=== PATIENT | female | born 1990 | race Caucasian/White ===

== ENCOUNTER 2022-03-16 14:11 | Emergency (ER) | payer OTHER ==
[~2022-03-16 14:11] MED LIST: FLEXERIL10 MG PO; MEDROL 4MG DOSEP4 MG PO
== END 2022-03-16 19:05 | disposition home or self-care (01) ==
LOC: FER 14:11
DX: M26.602 Left temporomandibular joint disorder, unspecified (principal); Z28.310 Unvaccinated for COVID-19
CPT/HCPCS: 96372; J1100; J1885